=== PATIENT | female | born 2005 | race Caucasian/White ===

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

== ENCOUNTER → 2025-05-27 | Outpatient (CLI) | payer SELFPAY, OTHER ==
--- NOTE | 2025-05-27 07:49 | US_ITS ---
PROCEDURE: ABDOMEN LIMITED 05/27/2025 REASON FOR EXAM: SPLENOMEGALY TECHNIQUE: Procedure Code: USABDL Modality: US Procedure: ABDOMEN LIMITED FINDINGS: Liver measures 16.4 cm in greatest longitudinal dimension, with coarse echotexture. Normal hepatopetal flow in the portal vein. No intrahepatic or extrahepatic biliary ductal dilation. Common bile duct 3 mm. Nontender thin-walled anechoic gallbladder without pericholecystic fluid. No definite pancreatic abnormality. 12.2 cm spleen, just above the upper limit of normal. Right kidney 11.8 x 5.2 x 4.2 cm. No cortical thinning. No calculus, mass, or hydronephrosis. Normal color flow. 4 quadrant ascites is identified. There is a large incompletely visualized heterogeneous solid or partially solid mass or two masses extending from the pelvis into the upper abdomen, measuring at least 14 cm in greatest dimension of undetermined origin. US/Abdomen Limited IMPRESSION: Incompletely assessed at least 14 cm heterogeneous solid or partially solid mas s or masses extending into the upper abdomen from the pelvis, of undetermined origin, but most likely uterine or ovarian. Abdome n CT with IV and enteric contrast is recommended for more definitive assessment. Ascites fluid in all 4 quadrants of the abdome n. Mild splenomegaly at 12.2 cm. Normal-sized liver with nonspecifically coarsened echotexture, without hyperech oic fatty infiltration. Clinical correlation for hepatic pathology recommended. Reading Location: [facility]
== END | disposition home or self-care (01) ==
PROVIDERS: PCP Pediatrics; Referring Provider Pediatrics; Visit Provider Pediatrics
DX: R16.1 Splenomegaly, not elsewhere classified (principal)
CPT/HCPCS: 76705

== ENCOUNTER → 2025-05-27 | Outpatient (CLI) | payer OTHER, SELFPAY ==
[2025-05-27 09:37] LABS: Hematocrit 31.3 % (37-47); Hemoglobin 11.5 g/dL (12.0-15.0); Immature Granulocytes Count 0.060 X10^3/uL (0.0-0.0); Immature Reticulocyte Fraction 27.00 % (3.00-15.90); Mean Corp Hgb Conc 36.7 g/dL (32-36); Mean Corpuscular Volume 87.4 fL (81-99); Mean Platelet Vol. 9.5 fl (6.2-12.0); NRBC Flagged by Analyzer 0 % (0-5); Platelet Count 283 K/mm3 (150-450); RBC Distribution Width CV 13.5 % (11.6-14.6); RBC Distribution Width SD 42.6 fl (35.1-43.9); Red Blood Count 3.58 M/mm3 (4.2-5.4); Reticulocyte Count 3.84 % (0.5-1.5); White Blood Count 11.1 K/mm3 (4.4-11.0)
[2025-05-27 10:26] LABS: AST(SGOT) 32 U/L (<=31); Alanine Aminotransfer ALT/SGPT 33 U/L (<=34); Albumin, Serum 4.4 g/dL (3.5-5.0); Alkaline Phosphatase 57 U/L (35-104); Anion Gap 14 (5-15); BUN 8 mg/dL (4-19); BUN/Creat Ratio 18.7 RATIO (10-20); Calcium,Total 9.4 mg/dL (7.6-11.0); Carbon Dioxide 19.8 mmol/L (21.0-32.0); Chloride 102 mmol/L (98-108); Ferritin 287 ng/mL (22-378); Globulin 3.2 g/dL (2.2-4.2); Glucose 90 mg/dL (70-99); LDH 270 U/L (84-246); Potassium 3.6 mmol/L (3.3-5.1)
[2025-05-30 17:08] LABS: EBV Acute VCA IgM < 36.0 U/mL (0.0-35.9); EBV-VCA IgG > 600.0 U/mL (0.0-17.9); HEPATITIS B SURFACE AG Negative (Negative); Hep C Antibodies Non Reactive (Non Reactive)
== END | disposition home or self-care (01) ==
LOC: LAB 08:54
PROVIDERS: PCP Pediatrics; Referring Provider Pediatrics; Visit Provider Pediatrics
DX: R16.1 Splenomegaly, not elsewhere classified (principal)
CPT/HCPCS: 36415; 80053; 80074; 80185; 82728; 83615; 85025; 85045; 86664; 86665